=== PATIENT | male | born 1945 | race Caucasian/White ===

== ENCOUNTER 2024-06-07 08:33 | Outpatient (RCR) | payer MEDICARE, BC, SELFPAY ==
--- NOTE | 2024-06-07 09:27 | PT.OPEX ---
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 Mathur Subjective Preferred Name Bill Subjective Patient is a 78 year old male who presents to physical therapy for his pre-op appointment prior to right TKA on 06/13/24. Significant past medical history includes nothing significant. Pain Comments Today: 0/10 on a 0-10 pain scale with 10 = extreme pain At its worst: 7/10 At its best: 0/10 Current Work Status Retired Precautions Weight Bearing Status Full Weight Bearing Therapy Limitations/Systems Review Not Limited Objective Other/Pertinent Objective GAIT/FUNCTIONAL MOBILITY Independent KNEE ROM Left: WNL Right: Extension/Flexion:-5-110 HIP ROM Grossly tested WNL LLE MMT: Hip flexion: R 4+/5 L 4+/5 Hip abduction: R 4+/5 L 4+/5 Hip extension: R 4+/5 L 4+/5 Knee flexion: R 5/5 L 5/5 Knee extension: R 5/5 L 5/5 Reviewed/demonstrated on frequency to perform HEP post operatively including: long sitting quad ankle pumps supine heel slide with strap supine quad sets supine SAQ SLR with quad set seated long arc quad seated knee flexion AAROM supine knee extension stretch on towel roll Extensive discussion and education on what to expect post operatively. Time was spent discussing home modifications, Assistive devices, pain control, fall prevention, hospital stay time line, and assist needed for activities post surgically. Pt questions were answered and demonstrated understanding. Assessment Assessment/Impression Patient is a 78 year old male who presents to physical therapy for his pre-op appointment prior to right TKA on 06/13/24. Patient also has notable objective findings including limited ROM, tenderness to palpation, and decreased strength which are also likely contributing to the problem. Patient is a good candidate for skilled therapy to target deficits described above. Skilled PT intervention is necessary for use of therapeutic exercise manual therapy, neuromuscular re- education, gait training, and therapeutic activity. Functional impairments include difficulty with: standing, walking, exercising, and ADLs. See appropriate sections of PT eval for complete list of goals and POC. D/C plan and criteria is for pt to achieve the goals as listed below or until max rehab potential is met. Pt was agreeable with plan of care and goals established. Primary Functional Limitations standing walking exercising ADLs Plan of Care Rehabilitation Potential Good Physical Therapy Goals Within 10-12 weeks: 1) Pt will improve knee AROM at least 0 to 120 for improved sit to stand transfers 2) Pt will demonstrate negative extensor lag during straight leg raise exercise with ability to complete at least 15 reps with 5 sec hold to improve strength for ambulation 3) Patient will demonstrate/ report ability to walk for 15 minutes w/SPC with pain level <1/10, to allow for community and household ambulation. 4) Pt will be indep with HEP for group home management of pain/symptoms 5) Patient will ascend/descend at least 10 steps using single rail and reciprocal pattern to improve ease of mobility at home/community 7) Patient will demonstrate/ report ability to walk for 15 minutes w/o AD with pain level <1/10, to allow for community and household ambulation. Coordination/Communication With Referral Source Treatment Plan/Direct Interventions Gait Training,Manual Therapy, Neuromuscular Re-ed, Therapeutic Activities, Therapeutic Exercises Patient Will Be Discharged From Therapy Independently Progressing Evaluation Billing Untimed Code Treatment Minutes 30 Complexity Low Certification Information Provider Signature Required Yes Provider Signature Shows Agreement With POC & Medical Necessity Physician NPI Number Write NPI# Here Physician Comment/Change : Physician Signature & Date Requested Please Sign/Date Here
== END 2024-08-14 09:41 | disposition home or self-care (01) ==
PROVIDERS: PCP Internal Medicine; Visit Provider Orthopaedic Surgery
DX: M17.11 Unilateral primary osteoarthritis, right knee (principal); Z96.651 Presence of right artificial knee joint; Z51.89 Encounter for other specified aftercare
CPT/HCPCS: 97161

== ENCOUNTER 2024-06-13 06:19 | Day surgery (SDC) | payer MEDICARE, BC, SELFPAY ==
[2024-06-13] VITALS (20 sets, daily range): BP systolic 104–150; BP diastolic 64–87; PULSE 51–69; RESP 12–20; TEMP 35.8–36.7; O2SAT 94–99; BMI 31.3
--- OUTSIDE RECORDS SUMMARY | 2024-06-13 06:22 | XMS_ITS | Clinical Summary ---
Author Organization [facility] Address [address] [place] [address] Care Team Providers Care Registered Nurse Ambulatory Name Role Phone Ana Humphreys P.A.-C. Primary Care Pro vider Source Comments Patient records contain information from all sites at [facility]. For routine questions regarding patient records, call [phone] during business hours, M-F 8:00 AM - 5:00 PM Central Time. Record requests for emergency care only can be directed to [phone] at any time.[facility] Allergies Active Allergy Reactions Criticality Noted Date Comments Lomefloxacin Photosensitivity 12/16/2006 Sulfamethoxazole-Trimethoprim Rash 2013 Sun burn Medications * This document contains information received from the source organization and may not represent a complete record from that organization. rosuvastatin (Crestor) 10 mg tablet Take 1 tablet (10 mg total) by mouth daily. 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 PSA (Prostate-Specific Antigen) Screen 05/30/2024 8:30 AM CFD ENGINEER Office Visit Department of Community Internal Medicine in [address] [phone] Ana Humphreys MPAS, P.A.-C. Preanesthetic Medical Exam (Primary Dx) 05/16/2024 9:30 AM CFD ENGINEER Comprehensive Visit Department of Urology in [place], [place] [address] [place] [address] Dennise Perez, BALJINDER, C.N.P. Elevated Prostate-Specific Antigen (Primary Dx); Cancer Prostate Family History 05/09/2024 3:24 PM CFD ENGINEER - 05/09/2024 11:59 PM CFD ENGINEER Hospital Encounter Department of Laboratory Medicine in [address] [phone] Ana Humphreys MPAS, P.A.-C. Elevated Prostate-Specific Antigen Discharge Disposition: Home or Self Care 05/09/2024 3:24 PM CFD ENGINEER - 05/09/2024 11:59 PM CFD ENGINEER Hospital Encounter Department of Laboratory Medicine in [address] [phone] Ana Humphreys MPAS, P.A.-C. Elevated Prostate-Specific Antigen Discharge Disposition: Home or Self Care 05/05/2024 10:30 AM CFD ENGINEER Procedure visit Department of Family Medicine, [facility], in [address] [phone] Ana Humphreys MPAS, P.A.-C. Marisela Wagner L.P.N. Cerumen Impacted Bilateral (Primary Dx) 05/05/2024 9:47 AM CFD ENGINEER - 05/05/2024 11:59 PM CFD ENGINEER Hospital Encounter Department of Laboratory Medicine in [address] [phone] Ana Humphreys MPAS, P.A.-C. Screening Examination Prostate Cancer Discharge Disposition: Home or Self Care 05/05/2024 Orders Only Department of Community Internal Medicine in [address] [phone] Ana Humphreys MPAS, P.A.-C. Elevated Prostate-Specific Antigen (Primary Dx) 05/05/2024 Clinical Communication Department of Community Internal Medicine in [address] [phone] Ana Humphreys MPAS, P.A.-C. 03/23/2024 11:24 AM CFD ENGINEER - 03/23/2024 11:59 PM CFD ENGINEER Hospital Encounter Department of Laboratory Medicine in [address] [phone] Ana Humphreys MPAS, P.A.-C. Hyperlipidemia; General Medical Examination Adult; Screening Examination Prostate Cancer Discharge Disposition: Home or Self Care 03/23/2024 11:20 AM CFD ENGINEER Office Visit Department of Community Internal Medicine in [address] [phone] Ana Humphreys MPAS, P.A.-C. Hyperlipidemia (Primary Dx); Screening Examination Prostate Cancer; General Medical Examination Adult 03/23/2024 10:30 AM CFD ENGINEER Office Visit Department of Family Medicine, [facility], in [address] [phone] Ana Humphreys MPAS, P.A.-C. Reanna Mireles RDarryl. Annual Medicare Examination Return (Primary Dx) 03/23/2024 Orders Only Department of Community Internal Medicine in [place], [place] [address] [place] [address] Ana Humphreys MPAS, P.A.-C. Hyperlipidemia (Primary Dx); General Medical Examination Adult 03/22/2024 9:30 AM CFD ENGINEER - 03/22/2024 11:59 PM CFD ENGINEER Hospital Encounter Department of Laboratory Medicine in [place], [place] [address] [place] [address] Ana Humphreys MPAS, P.A.-CTangela General Medical Examination Adult; Screening Test Laboratory; Screening Examination Prostate Cancer Discharge Disposition: Home or Self Care from Last 3 Months Immunizations Immunization Administration Dates Next Due Influenza TIV (IM) 02/19/2024, 8,05/07/2017,2008 Influenza high dose QV(65 ye ars or older) (PF) 01/10/2023,01/21/2021,01/01/2020 Influenza, Quadrivalent, Adj uvanted, Preservative Free 01/17/2022 Influenza, Seasonal, Injectable 03/02/20 14,03/24/2012,03/05/2010,2007,02/23/2007,03/23/2006,05/01/2004,1 Influenza, Unspecified 02/15/2008,2006,03/23/2006,2004,02/15/2003 Pneumococcal, Unspecified 03/19/2023(Deferred: P atient decision) RSV: respiratory syncytial v irus (AREXVY) recombinant vaccine 02/26/2023 RZV (SHINGRIX) 03/19/2023(Deferred: Patient dec ision) Tdap 03/08/2018 influenza trivalent high dos e (HD)(PF) 01/27/2019 influenza trivalent vaccine (6 months and older)(PF) 03/22/2015,01/16/2013,02/11/2011,1999 influenza vaccine quad (FLUZONE/FLUARIX) (6 months and older)(PF) 03/10/2014 Family History Medical History Relation Name Comments Heart valve disorder Daughter Jayda prolaps e Diabetes Father Negro Baxter Prostate cancer Father Negro Baxter Prostate cancer Maternal Grandfather Heart beats irregular Maternal Grandmother Mayra Pacemaker catheter, device Maternal Grandmother Mayra Colon polyps Mother Cindy Baxter Ovarian cancer Mother Cindy Baxter Stroke Paternal Grandfather Eleno Baxter No Known Problems Son Dm Relation Name Status Comments Daughter Jayda Alive Father Negro Baxter Maternal Grandfather Alive Maternal Grandmother Mayra Mother Cindy Baxter Paternal Grandfather Eleno Baxter Son Dm Alive Social History Tobacco Use Types Packs/Day Years Used Date Smoking Tobacco: Former Cigarettes Q uit: 04/19/1994 Pipe Passive Smoke Exposure: Past Smokeless Tobacco: Never Tobacco Cessation:Counseling Given: Not Answered Comments:Smoked a pipe for 20 years. Alcohol Use Standard Drinks/Week Comments Yes 1 (1 standard drink = 0.6 oz pure alcohol) 1-2 drink per month - socially with dinner [facility] WAFUities Answer Date Recorded In the past 12 months has [employer], gas, oil, or water shopatplaces threatened to shut off services in your home? No 03/20/2024 Social Connection and Isolat ion Panel [NHANES] Answer Date Recorded In a typical week, how many times do you talk on the phone with family, friends, or neighbors? Twice a week 12/18/2020 How often do you get togethe r with friends or relatives? Three times a week 12/18/2020 How often do you attend chur or faith services? More than 4 times per year 12/18/2020 Do you belong to any clubs o r organizations such as scientologist groups, unions, fraternal or athletic groups, or school groups? Yes 12/18/2020 How often do you attend meet ings of the clubs or organizations you belong to? More than 4 times per year 12/18/2020 Are you , , di vorced, , never , or living with a partner? 12/18/2020 AUDIT-C Answer Date Recorded Q1: How often do you have a drink containing alc ohol? 2-4 times a month 12/18/2020 Q2: How many drinks containi ng alcohol do you have on a typical day when you are drinking? 1 or 2 12/18/2020 Q3: How often do you have si x or more drinks on one occasion? Never 12/18/2020 Overall Financial Resource Strain (CARDIA) Answe r Date Recorded How hard is it for you to pa y for the very basics like food, housing, medical care, and heating? Not hard at all 03/16/2023 PHQ-2 Answer Date Recorded PHQ-2 Score 0 05/30/2024 [facility] - Occupational Stress Questionnaire Answer Date Recorded Do you feel stress - tense, restless, nervous, or anxious, or unable to sleep at night because your mind is troubled all the time - these days? Not at all 12/18/2020 Exercise Vital Sign Answer Date Recorde d On average, how many days pe r week do you engage in moderate to strenuous exercise (like a brisk walk)? 5 days 03/20/2024 On average, how many minutes do you engage in exercise at this level? 90 min 03/20/2024 Hunger Vital Sign Answer Date Recorded Within the past 12 months, y ou worried that your food would run out before you got the money to buy more. Never true 03/20/20 24 Within the past 12 months, t he food you bought just didn't last and you didn't have money to get more. Never true 03/20/2024 PRAPARE - Transportation Answer Date Re corded In the past 12 months, has l ack of transportation kept you from medical appointments or from getting medications? No 05/2023 In the past 12 months, has l ack of transportation kept you from meetings, work, or from getting things needed for daily living? No 03/20/2024 Nutrition Answer Date Recorded On average, how many serving s of fruits and vegetables do you eat per day (serving size is equal to 1 cup or approximately the size of a tennis ball)? 0-2 03/20/2024 Dental Answer Date Recorded Dental: Regular Dentist Yes 04/23/19 Employment Answer Date Recorded Employment status Retired 03/20/2024 Housing Stability Answer Date Recorded What is your living situation today? I have a [facility] place to live 03/20/2024 Education Answer Date Recorded What is the highest level of school you have completed or the highest degree you have received? Doctorate 12/18/2020 Sex and Gender Information Value Date Recorded Sex Assigned at Male 12/18/2020 10:35 AM CDT Legal Sex Male 6:01 PM CFD ENGINEER Gender Identity Male 12/18/2020 10:35 AM CDT Sexual Orientation Straight 12/18/2020 10 :35 AM CDT Last Filed Vital Signs Vital Sign Reading Time Taken Comments Blood Pressure 139/78 05/30/2024 8:24 AM CFD ENGINEER Pulse 63 05/30/2024 8:24 AM CFD ENGINEER Temperature 35.3 C (95.5 F) 05/30/2024 8:24 AM CFD ENGINEER Respiratory Rate 20 05/30/2024 8:24 AM CFD ENGINEER Oxygen Saturation 98% 05/30/2024 8:24 AM CFD ENGINEER Inhaled Oxygen Concentration - - Weight 102 kg (224 lb 8.6 oz) 05/30/2024 8:24 AM CFD ENGINEER Height 180.5 cm (5' 11.06) 05/30/2024 8:24 AM C Body Mass Index 31.26 05/30/2024 8:24 AM CFD ENGINEER Plan of Treatment Upcoming Encounters Date Type Department Care Team (Late st Contact Info) Description 07/13/2024 8:00 AM CDT Appointment Department of Laboratory Medicine in [place], [place] [address] [phone] Dennise Perez APRN, C.N.P. [address] [phone] 07/17/2024 1:30 PM CDT Office Visit Department of Urology in [address] [phone] Dennise Perez APRN, C.N.P. [address] [phone] Health Maintenance Due Date Last Done Comments Pneumococcal vaccine (50+ years) (1 of 1 - PCV) 1996 Zoster Vaccines (1 of 2) 1996 Fall Risk Screen (Annual) 04/19/2024 COVID-19 Vaccine (8 - 2024-25 season) 2024 02/19/2024, 01/10/2023, 01/17/2022, Additional history exists Visit: Medicare Annual Wellness 03/24/2025 03/23/2024 Visit: Annual, age 65+ (or Medicare and <65) 05/30/2025 05/30/2024, 03/23/2024, 03/19/2023 DTaP,Tdap,and Td Vaccines (2 - Td or Tdap) 03/08/2028 03/08/2018 Hepatitis C Screening Completed 10/04/2020 Colonoscopy Discontinued 10/21/2020 Colonoscopy Discontinued 10/21/2020 Colorectal Cancer Screening Discontinued Colorectal Cancer Surveillance Discontinued Abdominal Aortic Aneurysm (AAA) Screen Discontinued 10/31/2020 RSV vaccine - (32-36 weeks) or 60+ years Completed 02/26/2023 Influenza Vaccine Completed 02/19/2024, , 01/17/2022, Additional history exists Depression Screening (Annual PHQ-2) Completed 05/30/2024, 05/30/[address] Colonography Discontinued Cologuard Discontinued FIT Discontinued IPV Vaccines Aged Out No longer eligi ble based on patient's age to complete this topic Procedures Procedure Name Priority Date/Time Associated Diagnosis Comments PROSTATE-SPECIFIC AG (PSA) DIAGNOSTIC, S Routine 05/09/2024 3:32 PM CFD ENGINEER Elevated Prostate-Specific Antigen URINALYSIS WITH MICROSCOPIC Routine 05/09/2024 3:31 PM CFD ENGINEER Elevated Prostate-Specific Antigen [place] RMVL IMPACT CERUMEN IRRIG UNILAT Routine 05/05/2024 10:30 AM CFD ENGINEER Cerumen Impacted Bilateral PROSTATE-SPECIFIC AG (PSA) SCRN, S Routine 05/05/2024 9:56 AM CFD ENGINEER Screening Examination Prostate Cancer PROSTATE-SPECIFIC AG (PSA) SCRN, S Routine 03/23/2024 11:37 AM CFD ENGINEER Screening Examination Prostate Cancer BASIC METABOLIC PANEL, S/P Routine 03/23/2024 11:37 AM CFD ENGINEER General Medical Examination Adult LIPID PANEL, S Routine 03/23/2024 11:37 AM CFD ENGINEER Hyperlipidemia PROSTATE-SPECIFIC AG (PSA) SCRN, S Routine 03/22/2024 9:41 AM CFD ENGINEER General Medical Examination Adult Screening Test Laboratory Screening Examination Prostate Cancer US AORTA RAD - Routine (most inpatients and all outpatients) 10/31/2020 2:51 PM CDT Screening Abdominal Aortic Aneurysm HCV AB SCRN W/REFLEX TO HCV PCR, S Routine 10/04/2020 8:58 AM CDT Screening Test Laboratory from Last 3 Months or Most Recently Relevant to Health Maintenance Results * (ABNORMAL) PSA (Prostate-Specific Antigen), Diagnostic (05/09/2024 3:32 PM CFD ENGINEER) Prostate-Specific Ag 7.8(H) <=6.5 ng/mL 05/09/2024 6:03 PM CFD ENGINEER OWAT Comment: ----ADDITIONAL INFORMATION---- The testing method is an electrochemiluminescence assay manufactured by [employer] and performed on the Modular or Nash system. Values obtained with different assay methods or kits may be different and cannot be used interchangeably. Test results cannot be interpreted as absolute evidence for the presence or absence of malignant disease. Blood (Blood, Venous) 05/09/2024 3:32 PM CFD ENGINEER 05/09/2024 5:39 PM CFD ENGINEER us Ana HINES, P.A.-C. LAB BLOOD ADD-ON Final Result [facility] [address] [place] [address], [place] OWAT [facility] [place] [address] [place] [address] * (ABNORMAL) Urinalysis, with Microscopic: Urine, Midstream (05/09/2024 3:31 PM CFD ENGINEER) Source Urine, Urine, Midstream 05/09/2024 3:37 PM CFD ENGINEER FB60 Clarity Clear Clear 05/09/2024 3:39 PM CFD ENGINEER FB60 Color Yellow 05/09/2024 3:39 PM CFD ENGINEER FB60 Comment: ----REFERENCE VALUE---- Colorless Yellow Laurie Blood Trace(A) Negative 05/09/2024 3:39 PM CFD ENGINEER FB60 Nitrite Negative Negative 05/09/2024 3:39 PM CFD ENGINEER FB60 Leukocyte Esterase Trace(A) Negative 05/09/2024 3:39 PM CFD ENGINEER FB60 Protein Negative mg/dL 05/09/2024 3:39 PM CFD ENGINEER FB60 Comment: ----REFERENCE VALUE---- Negative Trace Glucose Negative Negative mg/dL 05/09/2024 3:39 PM CFD ENGINEER FB60 Ketones, QI(U) Negative Negative mg/dL 05/09/2024 3:39 PM CFD ENGINEER FB60 Bilirubin Negative Negative 05/09/2024 3:39 PM CFD ENGINEER FB60 pH 6.0 5.0 - 8.0 05/09/2024 3:39 PM CFD ENGINEER FB60 Specific [place] 1.015 1.001 - 1.035 05/09/2024 3:39 PM CFD ENGINEER FB60 Urobilinogen 0.2 0.2 - 1.0 mg/dL 05/09/2024 3:39 PM CFD ENGINEER FB60 White Blood Cells None Seen /hpf 05/09/2024 3:44 PM CFD ENGINEER FB60 Comment: ----REFERENCE VALUE---- Males: 0-3 Females: 0-10 Unknown: 0-10 Red Blood Cells None Seen 0 - 2 /hpf 3:44 PM CFD ENGINEER FB60 Urine (Urine, Midstream) 05/09/2024 3:31 PM CFD ENGINEER 05/09/2024 3:36 PM CFD ENGINEER us Ana HINES, P.A.-C. LAB URINE ORDERAB LES Final Result [facility] [address] [place] [address], [place] FB60 [facility] [place] [address] [place] [address] * [place] RMVL IMPACT CERUMEN IRRIG UNILAT (05/05/2024 10:30 AM CFD ENGINEER) Narrative MMODAL - 05/05/2024 10:30 AM CFD ENGINEER Marisela Wagner L.P.N. 05/05/2024 10:40 AM FAM Ear wax removal procedure Performed by: Marisela Wagner L.P.N. Authorized by: Ana Humphreys MPAS, P.A.-CTangela PROCEDURE DETAILS Location: left ear and right ear Procedure type: irrigation Scope used: otoscope CONSENT Consent obtained: verbal PRE-PROCEDURE DETAILS Indication: cerumen impaction Pre-procedure medications: normal saline SEDATION / ANESTHESIA Anesthesia method: none POST-PROCEDURE DETAILS Inspection: complete impaction removal Hearing quality: improved Complications: no immediate complications us Ana HINES, P.A.-C. PROCEDURE/MINOR S URGICAL ORDERABLES Final Result Performing Organization Address [facility] de Phone Number MMODAL NA * (ABNORMAL) PSA (Prostate-Specific Antigen) Screen (05/05/2024 9:56 AM CFD ENGINEER) Only the most recent of3 resultswithin the time period is included. Prostate-Specific Ag 8.2(H) <=6.5 ng/mL 05/05/2024 1:24 PM CFD ENGINEER OWAT Comment: ----ADDITIONAL INFORMATION---- The testing method is an electrochemiluminescence assay manufactured by [employer] and performed on the Modular or Nash system. Values obtained with different assay methods or kits may be different and cannot be used interchangeably. Test results cannot be interpreted as absolute evidence for the presence or absence of malignant disease. Blood (Blood, Venous) 05/05/2024 9:56 AM CFD ENGINEER 05/05/2024 12:50 PM CFD ENGINEER us Ana HINES, P.A.-C. LAB BLOOD ADD-ON Final Result Performing Organization Address City/[facility] Co de Phone Number [facility] [address] [place] [address], [place] [facility] [place] [address] [place] [address] * Lipid Panel (03/23/2024 11:37 AM CFD ENGINEER) Triglycerides 78 mg/dL 03/23/2024 1:33 PM CFD ENGINEER OWAT Comment: ----REFERENCE VALUE---- Normal: <150 mg/dL Borderline High: 150-199 mg/dL High: 200-499 mg/dL Very High: > or =500 mg/dL Cholesterol, Total 124 mg/dL 2023 1:33 PM CFD ENGINEER OWAT Comment: ----REFERENCE VALUE---- Desirable: < 200 mg/dL Borderline High: 200 - 239 mg/dL High: > or = 240 mg/dL Cholesterol, LDL, Calculated 48 mg/dL 03/23/2024 1:33 PM CFD ENGINEER OWAT Comment: ----REFERENCE VALUE---- Desirable: <100 mg/dL Above Desirable: 100-129 mg/dL Borderline High: 130-159 mg/dL High: 160-189 mg/dL Very High: >=190 mg/dL ----ADDITIONAL INFORMATION---- LDL cholesterol calculated using the Love/NIH equation. Cholesterol, HDL 61 >=40 mg/dL 03/23/20 1:33 PM CFD ENGINEER OWAT Cholesterol, Non-HDL, Calculated 63 mg/dL 03/23/2024 1:33 PM CFD ENGINEER OWAT Comment: ----REFERENCE VALUE---- Desirable: <130 mg/dL Above Desirable: 130-159 mg/dL Borderline High: 160-189 mg/dL High: 190-219 mg/dL Very High: > or =220 mg/dL Fasting (8 HR or more) No 03/23/2024 11:37 AM CFD ENGINEER OWAT Blood (Blood, Venous) 03/23/2024 11:37 AM CFD ENGINEER 03/23/2024 12:47 PM CFD ENGINEER us Ana Humphreys MPAS, P.A.-C. LAB BLOOD ADD-ON Final Result [facility] [address] [place] [address], [facility] OWAT [facility] [place] [address] [place] [address] * Basic Metabolic Panel (03/23/2024 11:37 AM CFD ENGINEER) Potassium, P 4.9 3.6 - 5.2 mmol/L 03/23/2024 1:33 PM CFD ENGINEER OWAT Sodium, P 138 135 - 145 mmol/L 03/23/2024 1:33 PM CFD ENGINEER OWAT Chloride, P 103 98 - 107 mmol/L 03/23/2024 1:33 PM CFD ENGINEER OWAT Bicarbonate, P 25 22 - 29 mmol/L 03/23/2024 1:33 PM CFD ENGINEER OWAT Anion Gap, P 10 7 - 15 03/23/2024 1:33 PM CFD ENGINEER OWAT BUN (Blood Urea Nitrogen), P 23 8 - 24 mg/dL 03/23/2024 1:33 PM CFD ENGINEER OWAT Creatinine 1.00 0.74 - 1.35 mg/dL 03/23/2024 1:33 PM CFD ENGINEER OWAT Estimated GFR (eGFR) 78 >=60 mL/min/BSA 03/23/2024 1:33 PM CFD ENGINEER OWAT Comment: Estimated GFR calculated using the 2020 CKD_EPI creatinine equation. Calcium, Total, P 9.3 8.8 - 10.2 mg/dL 03/23/2024 1:33 PM CFD ENGINEER OWAT Glucose, P 89 70 - 140 mg/dL 03/23/2024 1:33 PM CFD ENGINEER OWAT Blood (Blood, Venous) 03/23/2024 11:37 AM CFD ENGINEER 03/23/2024 12:47 PM CFD ENGINEER us Ana HINES, P.A.-C. LAB BLOOD ADD-ON Final Result [facility] [address] [place] [address], [place] [facility] [place] [address] [place] [address] * US Aorta (10/31/2020 2:51 PM CDT) Anatomical Region Laterality Modality Abdomen, Pelvis, Ultrasound RST LOS, Ultrasound ARZ LOS, Ultrasound FLA LOS N/A Ultrasound 10/31/2020 3:22 PM CDT Impressions 10/31/2020 3:23 PM CDT No abdominal aortic aneurysm. Narrative 10/31/2020 3:23 PM CDT EXAM: US AORTA Exam performed with color and spectral Doppler analysis. COMPARISON: None. FINDINGS: Proximal abdominal aorta measures 1.9 x 2.2 cm. The mid abdominal aorta measures 1.7 x 1.5 cm. The distal abdominal aorta measures 1.3 x 1.6 cm. Normal caliber bilateral common iliac arteries. Aorta: AP - 1.7 cm Aorta: Trans - 1.6 cm Right ABIDA: AP - 1.0 cm Right ABIDA Trans - 1.1 cm Left ABIDA: AP - 1.1 cm Left ABIDA Trans - 1.0 cm Procedure Note Mindy David M.D. - 10/31/2020 EXAM: US AORTA Exam performed with color and spectral Doppler analysis. COMPARISON: None. FINDINGS: Proximal abdominal aorta measures 1.9 x 2.2 cm. The midabdominal aorta measures 1.7 x 1.5 cm. The distal abdominal aorta measures 1.3 x 1.6cm. Normal caliber bilateral common iliac arteries. Aorta: AP - 1.7 cm Aorta: Trans - 1.6 cm Right ABIDA: AP - 1.0 cm Right ABIDA Trans - 1.1 cm Left ABIDA: AP - 1.1 cm Left ABIDA Trans - 1.0 cm IMPRESSION: No abdominal aortic aneurysm. us Thien Murphy M.D. IMG US PROCEDURES Final Result * HCV Ab Scrn w/Reflex to HCV PCR, Serum (10/04/2020 8:58 AM CDT) HCV Ab Screen, S Negative Negative 10/05/2020 9:53 AM CDT [facility] Comment:[id number] rat io is <1.00. Blood (Blood, Venous) 10/04/2020 8:58 AM CDT 10/05/2020 8:01 AM CDT us Thien Murphy M.D. LAB MICROBIOLOGY - BLOOD ORDER FANY Final Result [facility] [address] [address] [facility] Dept. of Laboratory Medicine and Pathology [address] [address] from Last 3 Months or Most Recently Relevant to Health Maintenance Insurance [id number] [facility] [place] [phone] MEDICARE [facility] Care Teams Registered Nurse Ambulatory Relationship Specialty Start Date End Date Ana Humphreys MPAS, P.A.-C. [address] [place] [address] [place] [id number] PCP - General Internal Medicine 04/14/22
--- OUTSIDE RECORDS SUMMARY | 2024-06-13 06:22 | XMS_ITS | Encounter Summary ---
Author Organization [facility] Address [address] [place] [address] Care Team Providers Care Farm Hand Name Role Phone Ana Humphreys P.ATangela-CTangela Primary Care Pro vider Encounter Details Date Type Department Care Team (Latest Contact Info) Description 05/05/2024 9:47 AM WHITE KID BUFFER - 05/05/2024 11:59 PM [facility] Encounter Department of Laboratory Medicine in [place], [place] [address] [place] [address] Ana Humphreys MPAS PTangelaA.-CTangela [address] [place] [phone] Screening Examination Prostate Cancer Discharge Disposition: Home or Self Care Social History Tobacco Use Types Packs/Day Years Used Date Smoking Tobacco: Former Cigarettes Q uit: 04/19/1994 Pipe Passive Smoke Exposure: Past Smokeless Tobacco: Never Comments:Smoked a pipe for 2 0 years. Alcohol Use Standard Drinks/Week Comments Yes 1 (1 standard drink = 0.6 oz pure alcohol) 1-2 drink per month - socially with dinner [facility] Utilities Answer Date Recorded In the past 12 months has [employer], gas, oil, or water [employer] threatened to shut off services in your [...] 12/18/2020 How often do you attend chur ch or anabaptist services? More than 4 times per year 12/18/2020 Do you belong to any clubs o r organizations such as buddhist groups, unions, fraternal or athletic groups, or [...] PHQ-2 Answer Date Recorded PHQ-2 Score 0 03/20/2024 [facility] - Occupational Stress Questionnaire Answer Date Recorded [...] your living situation today? I have a [facility] place to live 03/20/2024 Education Answer Date Recorded What is the highest level of school you have completed or the highest degree you have received? Doctorate 12/18/2020 Sex and Gender Information Value Date Recorded Sex Assigned at Male 12/18/2020 10:35 AM CDT Legal Sex Male 6:01 PM WHITE KID BUFFER Gender Identity Male 12/18/2020 10:35 AM CDT Sexual Orientation Straight 12/18/2020 10 :35 AM CDT documented as of this encounter Medications at Time of Discharge rosuvastatin (Crestor) 10 mg tablet Take 1 tablet (10 mg total) by mouth daily. 90 tablet 3 01/13/2024 documented as of this encounter Plan of Treatment Upcoming Encounters Date Type Department Care Team (Late st Contact Info) Description 07/13/2024 8:00 AM CDT Appointment Department of Laboratory Medicine in [place], [place] [address] [place] [phone] Dennise Perez APRN, C.N.P. [address] [place] [phone] 07/17/2024 1:30 PM CDT Office Visit Department of Urology in [place] [address] [place] [phone] Dennise Perez APRN, C.NTangelaP. [address] [place] [phone] documented as of this encounter Procedures Procedure Name Priority Date/Time Associated Diagnosis Comments PROSTATE-SPECIFIC AG (PSA) SCRN, S Routine 05/05/2024 9:56 AM WHITE KID BUFFER Screening Examination Prostate Cancer documented in this encounter Results * (ABNORMAL) PSA (Prostate-Specific Antigen) Screen (05/05/2024 9:56 AM WHITE KID BUFFER) Prostate-Specific Ag 8.2(H) <=6.5 ng/mL 05/05/2024 1:24 PM WHITE KID BUFFER OWAT Comment: ----ADDITIONAL INFORMATION---- The testing method is an electrochemiluminescence assay manufactured by [employer] and performed on the Modular or Nash system. Values obtained with different assay methods or kits may be different and cannot be used interchangeably. Test results cannot be interpreted as absolute evidence for the presence or absence of malignant disease. Blood (Blood, Venous) 05/05/2024 9:56 AM WHITE KID BUFFER 05/05/2024 12:50 PM WHITE KID BUFFER us Ana HINES, P.A.-C. LAB BLOOD ADD-ON Final Result [facility] [address] [place] [address], [facility] OWAT [facility] in [place] [address] [place] [address] documented in this encounter Visit Diagnoses Diagnosis Screening Examination Prostate Cancer documented in this encounter Care Teams Farm Hand Relationship Specialty Start Date End Date Ana Humphreys MPAS, P.A.-C. [address] [place] [address] [place] IBRAHIM [phone] PCP - General Internal Medicine 04/14/22 documented as of this encounter
--- OUTSIDE RECORDS SUMMARY | 2024-06-13 06:22 | XMS_ITS | Clinical Summary ---
Author Organization [facility] Address [address] [place] [address] Care Team Providers Care Fire Safety Director Name Role Phone Thien Murphy MD Primary Care Provider [phone] Allergies Active Allergy Reactions Criticality Noted Date Comments Sulfamethoxazole-Trimethoprim Rash 2013 Sun burn Lomefloxacin Photosensitivity 12/16/2006 Medications tadalafiL (CIALIS;ADCIRCA) 20 mg tabletIndication s:Erectile dysfunction of organic origin Take 1 tablet by mouth once daily if needed for Erectile Dysfunction. Take 30 minutes before sexual activity. 10 tablet 11 0 Active rosuvastatin (Crestor) 10 mg tablet Take 10 mg by mouth once daily. 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 Overview (10/29/2020): Check with PCP in 5 years to see if a repeat colonoscopy is needed Abdominal pain, epigastric Cholecystitis Personal history of colonic polyps Immunizations Name Administration Dates Next Due COVID-19 vaccine (Tidalwave Trader 30mcg/0.3mL) P FDYLAN 07/13/2020,06/22/2020 Influenza, IIV3 (Age >=3 years) 05/07/2017,01/31 Influenza, IIV4 03/23/2015,03/10/2014 Influenza, Inactivated IIV3 (Age 65+ Years) Preserv Free 01/31/2018 Td (Age >=7 Years) 02/13/2000 Tdap 03/08/2018 Family History Medical History Relation Name Comments Cancer-prostate Father Diabetes Father Heart Disease Maternal Aunt Heart Disease Maternal Grandmother Cancer Mother ovarian Diabetes Paternal Grandfather Stroke Paternal Grandfather Relation Name Status Comments Father Maternal Aunt Maternal Grandmother Mother Paternal Grandfather Social History Tobacco Use Types Packs/Day Years Used Date Smoking Tobacco: Former Pipe Smokeless Tobacco: Never Tobacco Cessation:Counseling Given: Yes Alcohol Use Standard Drinks/Week Comments Yes 0 (1 standard drink = 0.6 oz pur e alcohol) occasional PHQ-2 Answer Date Recorded PHQ-2 Score 0 06/18/2018 Social Connections Answer Date Recorded Frequency of Communication with Friends and Fami ly Not on file 04/19/2021 Financial Resource Strain Answer Date R ecorded Difficulty of Paying Living Expenses Not on file 04/19/2021 Difficulty of Paying Living Expenses Not on file 04/19/2021 Sex and Gender Information Value Date Recorded Sex Assigned at Not on file Legal Sex Male 5:23 AM 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 Gender Identity Not on file Sexual Orientation Not on file 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 Not on file Not on file Obstetrics History Last Filed Vital Signs Vital Sign Reading Time Taken Comments Blood Pressure 123/66 10/21/2020 3:15 PM CDT Pulse 59 10/21/2020 3:15 PM CDT Temperature 36.6 C (97.8 F) 10/21/2020 1:31 PM CDT Respiratory Rate 14 10/21/2020 3:15 PM CDT Oxygen Saturation 96% 10/21/2020 3:15 PM CDT Inhaled Oxygen Concentration - - Weight 97.2 kg (214 lb 4.6 oz) 10/21/2020 1:31 P M CDT Height 181.6 cm (5' 11.5) 10/21/2020 1:31 PM CD T Body Mass Index 29.47 10/21/2020 1:31 PM CDT Plan of Treatment Health Maintenance Due Date Last Done Comments Pneumococcal series for age 50+ (1 of 1 - PCV) 1996 Zoster (shingles) series for age 50+ (1 of 2) 1996 Medicare Wellness for age 65+ 09/28/2011 Depression screening for age 12+ 03/08/2019 03/08/2018, 03/02/2018, 02/02/2018, Additional history exists BMI (ht and wt on same day) for age 18+ 11/19/2020 11/20/2019, 03/08/2018, 02/28/2018, Additional history exists RSV vaccine for adults or (1 - 1-dose 75+ series) 2021 COVID-19 vaccine series (3 - 2023- season) 2023 07/13/2020, 06/22/2020 Influenza for age 65+ 12/19/2023 01/31/2018 , 05/07/2017, 03/23/2015, Additional history exists Tetanus booster 03/08/2028 03/08/2018, 02/13/2000 Tdap Completed 03/08/2018 Hepatitis C screening for ag e 18-79 Completed 11/20/2019 Procedures Procedure Name Priority Date/Time Associated Diagnosis Comments ANTI HCV Routine 11/20/2019 10:52 AM CDT Erectile dysfunction of organic origin from Last 3 Months or Most Recently Relevant to Health Maintenance Results * ANTI HCV (11/20/2019 10:52 AM CDT) HEPATITIS C ANTIBODY Non-React bridgette Non-React bridgette 11/20/2019 5:13 PM CDT [facility] Comment:Antibodies to HCV no t detected; does not exclude the possibility of exposure to HCV. Blood BLOOD SPECIMEN / Unknown Venipuncture / Unknown 11/20/2019 10:52 AM CDT 11/20/2019 10:52 AM CDT us Manpreet Nagel MD SEND OUTS Final Result [facility] [address] [place] [address], [place] from Last 3 Months or Most Recently Relevant to Health Maintenance Insurance [facility] [place] ONLY MEDICARE PART B HB ONLY Advance Directives * Full Code (Latest Code Status on File) Date Activated Date Inactivated Comments 10/21/2020 1:21 PM 10/21/2020 5:49 PM Question Answer Comments Code Status Discussion: Per Existing Order * Full Code Date Activated Date Inactivated Comments 03/15/2018 8:54 AM 03/15/2018 6:55 PM Question Answer Comments Code Status Discussion: Not Discussed Care Teams Fire Safety Director Relationship Specialty Start Date End Date Thien Murphy MD PCP - General Internal Medicine 10/16/20
--- OUTSIDE RECORDS SUMMARY | 2024-06-13 06:22 | XMS_ITS | Encounter Summary ---
Author Organization [facility] Address [address] [place] [address] Care Team Providers Care Cloth Bale Header Name Role Phone Ana Humphreys P.ATangela-CTangela Primary Care Pro vider Encounter Details Date Type Department Care Team (Latest Contact Info) Description 05/09/2024 3:24 PM JANITOR AND CLEANER - 05/09/2024 11:59 PM [facility] Encounter Department of Laboratory Medicine in [place], [place] [address] [place] [address] Ana Humphreys MPAS PTangelaA.-CTangela [address] [place] [phone] Elevated Prostate-Specific Antigen Discharge Disposition: Home or Self Care Social History Tobacco Use Types Packs/Day Years Used Date Smoking Tobacco: Former Cigarettes Q uit: 04/19/1994 Pipe Passive Smoke Exposure: Past Smokeless Tobacco: Never Comments:Smoked a pipe for 2 0 years. Alcohol Use Standard Drinks/Week Comments Yes 1 (1 standard drink = 0.6 oz pure alcohol) 1-2 drink per month - socially with dinner [facility] Utilities Answer Date Recorded In the past 12 months has [employer], gas, oil, or water [employer] threatened to shut off services in your [...] often do you attend chur ch or nondenominational services? More than 4 times per year 12/18/2020 Do you belong to any clubs o r organizations such as adventist groups, unions, fraternal or athletic groups, or [...] Answer Date Recorded PHQ-2 Score 0 03/20/2024 [facility] of Occupat ional Health - Occupational Stress [...] your living situation today? I have a [facility] place to live 03/20/2024 Education Answer Date Recorded What is the highest level of school you have completed or the highest degree you have received? Doctorate 12/18/2020 Sex and Gender Information Value Date Recorded Sex Assigned at Male 12/18/2020 10:35 AM CDT Legal Sex Male 6:01 PM JANITOR AND CLEANER Gender Identity Male 12/18/2020 10:35 AM CDT [...] CDT Appointment Department of Laboratory Medicine in [place], [place] [address], [place] [phone] Dennise Perez APRN, C.N.P. [address], [place] [phone] 07/17/2024 1:30 PM CDT Office Visit Department of Urology in [place] [address] [place] [phone] Dennise Perez APRN CTangelaNTangelaP. [address] [place] [phone] documented as of this encounter Procedures Procedure Name Priority Date/Time Associated Diagnosis Comments PROSTATE-SPECIFIC AG (PSA) DIAGNOSTIC, S Routine 05/09/2024 3:32 PM JANITOR AND CLEANER Elevated Prostate-Specific Antigen documented in this encounter Results * (ABNORMAL) PSA (Prostate-Specific Antigen), Diagnostic (05/09/2024 3:32 PM JANITOR AND CLEANER) Prostate-Specific Ag 7.8(H) <=6.5 ng/mL 05/09/2024 6:03 PM JANITOR AND CLEANER OW Comment: ----ADDITIONAL INFORMATION---- The testing method is an electrochemiluminescence assay manufactured by [employer] and performed on the Modular or Nash system. Values obtained with different assay methods or kits may be different and cannot be used interchangeably. Test results cannot be interpreted as absolute evidence for the presence or absence of malignant disease. Blood (Blood, Venous) 05/09/2024 3:32 PM JANITOR AND CLEANER 05/09/2024 5:39 PM JANITOR AND CLEANER us Ana HINES, P.A.-C. LAB BLOOD ADD-ON Final Result [facility] [address] [place] [address], [facility] [place] [address] [place] [address] documented in this encounter Visit Diagnoses Diagnosis Elevated Prostate-Specific Antigen documented in this encounter Care Teams Cloth Bale Header Relationship Specialty Start Date End Date Ana Humphreys MPAS, P.A.-C. [address] [facility] ISHA IBRAHIM [phone] PCP - General Internal Medicine 04/14/22 documented as of this encounter
--- OUTSIDE RECORDS SUMMARY | 2024-06-13 06:22 | XMS_ITS | Encounter Summary ---
Author Organization [facility] Address [address] [place] [address] Care Team Providers Care Mop Handle Assembler Name Role Phone Ana Humphreys P.A.-C. Primary Care Pro vider Reason for Referral * Outpatient (Routine) - Authorized Specialty Diagnoses / Procedures Referred By Meenakshi verdin Referred To Contact Urology Dennise Perez APRN, C.N.P. [address] [place] [address] Phone: tel: fax: [facility] Referral ID Status Reason Start Date Expiration Date V isits Requested Visits Authorized [id number] Authorized 05/16/2024 11/15/2025 1 1 LABOR SUPERVISOR Reason for Visit * Reason Comments Elevated PSA * Outpatient (Routine) - Closed Specialty Diagnoses / Procedures Referred By Meenakshi verdin Referred To Contact Urology Diagnoses Elevated Prostate-Specific Antigen Ana Humphreys MPAS, P.A.-C. [address] [place] [phone] Phone: tel: fax: [facility] Region Referral ID Status Reason Start Date Expiration Date Visits Re quested Visits Authorized [id number] Closed 05/05/2024 11/04/2025 1 1 Encounter Details Date Type Department Care Team (Latest Contact Info) Description 05/16/2024 9:30 AM MILL LABOR SUPERVISOR Comprehensive Visit Department of Urology in [place], [place] [address] [place] [address] Dennise Perez APRN, C.N.P. [address] [place] [address] Elevated Prostate-Specific Antigen (Primary Dx); Cancer Prostate Family History Social History Tobacco Use Types Packs/Day Years Used Date Smoking Tobacco: Former Cigarettes Q uit: 04/19/1994 Pipe Passive Smoke Exposure: Past Smokeless Tobacco: Never Comments:Smoked a pipe for 2 0 years. Alcohol Use Standard Drinks/Week Comments Yes 1 (1 standard drink = 0.6 oz pure alcohol) 1-2 drink per month - socially with dinner [facility] Utilities Answer Date Recorded In the past 12 months has [employer], [employer], oil, or water [employer] threatened to shut off services in your [...] often do you attend chur ch or zoroastrianism services? More than 4 times per year 12/18/2020 Do you belong to any clubs o r organizations such as presybeterian groups, unions, fraternal or athletic groups, or [...] Answer Date Recorded PHQ-2 Score 0 03/20/2024 [facility] - [facility]ational Stress Questionnaire Answer Date [...] living situation today? I have a [facility] place to live 03/20/2024 Education Answer Date Recorded What is the highest level of school you have completed or the highest degree you have received? Doctorate 12/18/2020 Sex and Gender Information Value Date Recorded Sex Assigned at Male 12/18/2020 10:35 AM CDT Legal Sex Male 6:01 PM MILL LABOR SUPERVISOR Gender Identity Male 12/18/2020 10:35 AM CDT Sexual Orientation Straight 12/18/2020 10 :35 AM CDT documented as of this encounter Consult Notes * Dennise Perez APRN, C.N.P. - 05/16/2024 9:30 AM CST SUBJECTIVE REQUESTING PROVIDER Ana Humphreys MPAS, P.A.-C. REASON FOR CONSULT Elevated PSA HISTORY OF PRESENT ILLNESS Bill is a pleasant 78-year-old male here today for consultation for elevated PSA level. He states that as a child he had some urinary tract infections. He mild hypospadias and was uncircumcised. He did see a urologist in his 20s for this as well. He states that currently his stream is quite good, he has not had any changes in urinary symptoms. He does have family history of prostate cancer in his father and maternal grandfather. Please see PSA history below. Lab Results Component Value Date/Time PSA 7.8 (H) 05/09/2024 1532 PSA 8.2 (H) 05/05/2024 0956 PSA 7.0 (H) 03/23/2024 1137 PSA 6.7 (H) 03/22/2024 0941 PSA 6.2 03/19/2023 1438 PSA 2.5 10/04/2020 0858 The following portions of the patient's history were reviewed and updated as appropriate: allergies, current medications, family history, medical history, social history, surgical history, and problem list. REVIEW OF SYSTEMS Gastrointestinal: - Negative for constipation and diarrhea. Genitourinary: - Negative for incontinence, difficulty urinating, pain with urination, blood in urine, urgency andfrequent urination. Medical History[1] Surgical History[2] Family History[3] Allergies[4] Medications Ordered Prior to Encounter[5] Social History[6] OBJECTIVE There were no vitals filed for this visit. PHYSICAL EXAM Vitals and nursing note reviewed. General: Well developed, well nourished, well groomed male in no acute distress. Neurological: Alert, cooperative, oriented x3. Appropriate mood and affect. Abdomen: Soft, non-tender, non-distended : Skin color and turgor appropriate for region. No ulcers, erythema, rashes, or pigmented lesionsnoted. PROSTATE: Perianal area intact without lesions or visible hemorrhoids. No fissures or fistulas. Good sphincter tone, no masses. Prostate is symmetrical, smooth, firm, mildly enlarged, non-tender and without nodules. Seminal vesicles are non-palpable. Approximate size is 30-35 grams. ASSESSMENT / PLAN 1. Elevated Prostate-Specific Antigen (Primary) 2. Cancer Prostate Family History We had an in-depth discussion about his PSA levels and causes of elevated PSA. We discussed that PSA is elevated for typically 3 reasons: Prostate cancer, prostatitis, or Benign Prostatic Hypertrophy. Because his prostate exam is normal and does not show any masses, we will recheck PSA total and free approximately in 2 months and follow-up at that time. If his PSA continues to climb or if his PSAratio is quite low we would discuss going forward with prostate MRI or prostate biopsy at that time. Of note, he will be having knee replacement surgery on June 13 at [facility]. - Urology - Oncology - prostate consult (clinic) - PSA (Prostate-Specific Antigen), Total and Free; Future Signed by: Dennise Perez APRN, C.N.P. 05/16/2024 6:27 PM MILL LABOR SUPERVISOR [1] Past Medical History: Diagnosis Date Cholecystitis 09/29/2020 Hyperlipidemia 09/2020 Polyp Colon 10/21/2020 [2] Past Surgical History: Procedure Laterality Date GALLBLADDER SURGERY 03/11/2018 OTHER SURGICAL HISTORY 1989???s Meniscus TONSILLECTOMY age 5 VASECTOMY 30's [3] Family History Problem Relation Name Age of Onset Ovarian cancer Mother Cindy Sahil Colon polyps Mother Cindy Sahil Prostate cancer Father Negro Baxter Diabetes Father Negro Baxter Heart beats irregular Maternal Grandmother Mayra Pacemaker catheter, device Maternal Grandmother Mayra Stroke Paternal Grandfather Eleno Baxter Heart valve disorder Daughter Jayda prolapse No Known Problems Son Dm Prostate cancer Maternal Grandfather [4] Allergies Allergen Reactions Lomefloxacin Photosensitivity Sulfamethoxazole-Trimethoprim Rash Sun burn [5] Current Outpatient Medications on File Prior to Visit Medication Sig Dispense Refill rosuvastatin (Crestor) 10 mg tablet Take 1 tablet (10 mg total) by mouth daily. 90 tablet 3 No current facility-administered medications on file prior to visit. [6] Social History Tobacco Use Smoking status: Former Current packs/day: 0.00 Types: Pipe, Cigarettes Quit date: 04/19/1994 Years since quittin.0 Passive exposure: Past Smokeless tobacco: Never Tobacco comments: Smoked a pipe for 20 years. Vaping Use Vaping status: never used Substance Use Topics Alcohol use: Yes Alcohol/week: 1.0 standard drink of alcohol Types: 1 Cans of beer per week Comment: 1-2 drink per month - socially with dinner Drug use: Never LABOR SUPERVISOR documented in this encounter Plan of Treatment Upcoming Encounters Date Type Department Care Team (Late st Contact Info) Description 07/13/2024 8:00 AM CDT Appointment Department of Laboratory Medicine in [place], [place] [address] [phone] Dennise Perez APRN, C.N.P. [address] [phone] 07/17/2024 1:30 PM CDT Office Visit Department of Urology in [address] [phone] Dennise Perez APRN, C.N.P. [address] [phone] Scheduled Orders Name Type Priority Associated Diagnoses Orde r Schedule PSA (Prostate-Specific Antigen), Total and Free Lab Routine Elevated Prostate-Specific Antigen Cancer Prostate Family History Expected: 07/10/2024, Expires: 05/16/2025 Scheduled Referrals Name Type Priority Associated Diagnoses Orde r Schedule Urology office visit (clinic) Outpatient Referral Routine Expected: 07/17/2024, Expires: 08/14/2025 documented as of this encounter Visit Diagnoses Diagnosis Elevated Prostate-Specific Antigen- Primary Cancer Prostate Family History documented in this encounter Care Teams Mop Handle Assembler Relationship Specialty Start Date End Date Ana Humphreys MPAS, P.A.-C. [address] [place] [phone] PCP - General Internal Medicine 04/14/22 documented as of this encounter
--- OUTSIDE RECORDS SUMMARY | 2024-06-13 06:22 | XMS_ITS | Encounter Summary ---
Author Organization [facility] Address [address] [place] [address] Care Team Providers Care Machine Featheredger And Reducer Name Role Phone Ana Humphreys, P.A.-C. Primary Care Pro vider Reason for Visit * Reason Comments Pre-op Exam Right TKA 06/13/24 [facility] Mathur in [facility], . * Appointment Request (Routine) - Closed Specialty Diagnoses / Procedures Referred By Meenakshi t Referred To Contact Community Internal Medicine Referral ID Status Reason Start Date Expiration Date Visits Re quested Visits Authorized [id number] Closed 05/02/2024 05/02/2025 1 1 Encounter Details Date Type Department Care Team (Latest Contact Info) Description 05/30/2024 8:30 AM PROGRAM STRATEGIST Office Visit Department of Community Internal Medicine in [place], [place] [address] [place] [phone] Ana Humphreys MPAS, P.A.-C. [address] [place] [phone] Preanesthetic Medical Exam (Primary Dx) Social History Tobacco Use Types Packs/Day Years Used Date Smoking Tobacco: Former Cigarettes Q uit: 04/19/1994 Pipe Passive Smoke Exposure: Past Smokeless Tobacco: Never Comments:Smoked a pipe for 2 0 years. Alcohol Use Standard Drinks/Week Comments Yes 1 (1 standard drink = 0.6 oz pure alcohol) 1-2 drink per month - socially with dinner [facility] Utilities Answer Date Recorded In the past 12 months has e electric, gas, oil, or water company threatened to shut off services in your [...] often do you attend chur ch or alevism services? More than 4 times per year 12/18/2020 Do you belong to any clubs o r organizations such as pentecostal groups, unions, fraternal or athletic groups, or [...] Answer Date Recorded PHQ-2 Score 0 05/30/2024 [facility] [place] of Occupat ional Health - Occupational Stress [...] your living situation today? I have a [facility] place to live 03/20/2024 Education Answer Date Recorded What is the highest level of school you have completed or the highest degree you have received? Doctorate 12/18/2020 Sex and Gender Information Value Date Recorded Sex Assigned at Male 12/18/2020 10:35 AM CDT Legal Sex Male 6:01 PM PROGRAM STRATEGIST Gender Identity Male 12/18/2020 10:35 AM CDT Sexual Orientation Straight 12/18/2020 10 :35 AM CDT documented as of this encounter Last Filed Vital Signs Vital Sign Reading Time Taken Comments Blood Pressure 139/78 05/30/2024 8:24 AM PROGRAM STRATEGIST Pulse 63 05/30/2024 8:24 AM PROGRAM STRATEGIST Temperature 35.3 C (95.5 F) 05/30/2024 8:24 AM PROGRAM STRATEGIST Respiratory Rate 20 05/30/2024 8:24 AM PROGRAM STRATEGIST Oxygen Saturation 98% 05/30/2024 8:24 AM PROGRAM STRATEGIST Inhaled Oxygen Concentration - - Weight 102 kg (224 lb 8.6 oz) 05/30/2024 8:24 AM PROGRAM STRATEGIST Height 180.5 cm (5' 11.06) 05/30/2024 8:[address] Body Mass Index 31.26 05/30/2024 8:24 AM PROGRAM STRATEGIST documented in this encounter Patient Instructions * Patient Instructions* Ana Humphreys MPAS, P.A.-C. - 05/30/2024 8:30 AM PROGRAM STRATEGIST No aspirin/NSAID products 7 days prior to procedure RAM STRATEGIST documented in this encounter H&P Notes * Ana Humphreys MPAS, P.A.-C. - 05/30/2024 8:30 AM CST PREANESTHETIC MEDICAL EVALUATION Procedure: Right Total Knee Arthroplasty Date of Surgery: 06/13/2024 Requesting Provider: Dr. Mathur. [facility] SUBJECTIVE HISTORY OF PRESENT ILLNESS Mike Baxter is a 78 y.o. male seen in consultation for a preanesthetic medical evaluation.He has a PMHx of hyperlipidemia managed on rosuvastatin. He occasionally takes NSAIDs for joint pain. Patient currently denies Shortness of breath, Wheezing or coughing, Difficulty breathing when lyingflat, Waking up at night feeling short of breath, Edema - abdominal bloating, Edema - lower extremities, and Fatigue/Altered activity tolerance. He denies chest pain. Procedure cardiac risk: Intermediate Risk (cardiac risk <5%): CEA, head/neck surgery, intraabdominal or intrathoracic surgery, orthopedic surgery, prostate surgery Functional status: Functional Class II: Able to perform 5-7 METS (walk > 4 blocks or climb over 2 flights without cardiac or pulmonary Sx) RCRI estimated risk of michelle-operative cardiac , non-fatal RI, or non-fatal cardiac arrest: None RCRI risk: 0 Predictors (0.4% risk of major cardiac event) His alcohol intake is 1- 2 drinks per month. He is a former smoker, quit in . PREOPERATIVE CONSIDERATIONS None. No history of chronic kidney disease, liver disease, obstructive sleep apnea, venous thromboembolism, atrial fibrillation, aortic stenosis, seizure history. PAST MEDICAL HISTORY Medical History[1] PAST SURGICAL HISTORY Surgical History[2] OBJECTIVE PHYSICAL EXAM Vitals: BP 139/78 (BP Location: Left arm, Patient Position: Sitting, Cuff Size: Large) Pulse 63 Temp (!) 35.3 ??C (Temporal) Resp 20 Ht 180.5 cm Wt 102 kg SpO2 98% BMI 31.26 kg/m?? Constitutional General: He is not in acute distress. Appearance: Normal appearance. HENT Head: Normocephalic and atraumatic. Right Ear: There is impacted cerumen. Left Ear: Tympanic membrane normal. Mouth/Throat: Mouth: Mucous membranes are moist. Pharynx: Oropharynx is clear. No oropharyngeal exudate or posterior oropharyngeal erythema. Eyes Extraocular Movements: Extraocular movements intact. Conjunctiva/sclera: Conjunctivae normal. Pupils: Pupils are equal, round, and reactive to light. Neck Vascular: No carotid bruit. Cardiovascular Rate and Rhythm: Normal rate and regular rhythm. Heart sounds: Normal heart sounds. No murmur heard. No gallop. Pulmonary Effort: Pulmonary effort is normal. No respiratory distress. Breath sounds: Normal breath sounds. No wheezing, rhonchi or rales. Abdominal General: Bowel sounds are normal. There is no distension. Palpations: Abdomen is soft. Tenderness: There is no abdominal tenderness. There is no guarding or rebound. Musculoskeletal Cervical back: Neck supple. Right lower leg: No edema. Left lower leg: No edema. Lymphadenopathy Cervical: No cervical adenopathy. Skin General: Skin is warm and dry. Neurological Mental Status: He is alert and oriented to person, place, and time. Mental status is at baseline. Motor: No weakness. Deep Tendon Reflexes: Reflexes normal. Psychiatric Mood and Affect: Mood normal. Behavior: Behavior normal. Thought Content: Thought content normal. LABORATORY STUDIES/EKG/Radiology: Lab Results Component Value Date WBC 5.0 01/31/2018 HGB 14.5 01/31/2018 HCT 43.7 01/31/2018 MCV 94 01/31/2018 PLT 211 01/31/2018 Lab Results Component Value Date NA 138 03/23/2024 Lab Results Component Value Date KPLASMA 4.9 03/23/2024 Lab Results Component Value Date CREATININE 1.00 03/23/2024 Lab Results Component Value Date GLUCOSE 89 03/23/2024 ASSESSMENT / PLAN ASSESSMENT / PLAN #1 Preanesthetic Medical Exam Mike Baxter is considered a low risk patient undergoing a moderate risk procedure. His physical activity is currently above 4 mets and he currently declines any issues. He was instructed to hold aspirin/NSAID products for 7 days prior to his procedure. No medical contraindication to anticipated surgery. DONNY Boles PTangelaA.PhoenixC. [1] Past Medical History: Diagnosis Date Cholecystitis 09/29/2020 Hyperlipidemia 09/2020 Polyp Colon 10/21/2020 [2] Past Surgical History: Procedure Laterality Date GALLBLADDER SURGERY 03/11/2018 OTHER SURGICAL HISTORY 1989???s Meniscus TONSILLECTOMY age 5 VASECTOMY 31's RAM STRATEGIST documented in this encounter Plan of Treatment Upcoming Encounters Date Type Department Care Team (Late st Contact Info) Description 07/13/2024 8:00 AM CDT Appointment Department of Laboratory Medicine in [place], [place] [address] [phone] Dennise Perez APRN, C.N.P. [address] [phone] 07/17/2024 1:30 PM CDT Office Visit Department of Urology in [place], [place] [address] [place] [phone] Dennise Perez APRN, C.N.P. [address] [phone] documented as of this encounter Visit Diagnoses Diagnosis Preanesthetic Medical Exam- Primary documented in this encounter Care Teams Machine Featheredger And Reducer Relationship Specialty Start Date End Date Ana Humphreys MPAS, P.A.-C. [address] [place] [phone] PCP - General Internal Medicine 04/14/22 documented as of this encounter
--- OUTSIDE RECORDS SUMMARY | 2024-06-13 06:22 | XMS_ITS | Encounter Summary ---
Author Organization [facility] Address [address] [place] [address] Care Team Providers Care Surface Grinding Machine Hand Name Role Phone Ana Humphreys P.A.-CTangela Primary Care Pro vider Reason for Referral * Outpatient (Routine) - Authorized Specialty Diagnoses / Procedures Referred By Meenakshi verdin Referred To Contact Diagnoses Cerumen Impacted Bilateral Procedures FAM Ear wax removal procedure Ana Humphreys MPAS, P.A.-CTangela [address] [place] [address] Phone: tel: fax: [facility] Referral ID Status Reason Start Date Expiration Date V isits Requested Visits Authorized [id number] Authorized 05/05/2024 05/05/2025 1 1 GER FRONT Encounter Details Date Type Department Care Team (Late st Contact Info) Description 05/05/2024 Clinical Communication Department of Community Internal Medicine in [place], [place] [address] [place] [address] Ana Humphreys MPAS, P.ATangela-CTangela [address] [place] [phone] Social History Tobacco Use Types Packs/Day Years Used Date Smoking Tobacco: Former Cigarettes Q uit: 04/19/1994 Pipe Passive Smoke Exposure: Past Smokeless Tobacco: Never Comments:Smoked a pipe for 2 0 years. Alcohol Use Standard Drinks/Week Comments Yes 1 (1 standard drink = 0.6 oz pure alcohol) 1-2 drink per month - socially with dinner [facility] Utilities Answer Date Recorded In the past [...] often do you attend chur ch or uatsdin services? More than 4 times per year [...] Answer Date Recorded PHQ-2 Score 0 03/20/2024 [facility] [place] of Occupat ional Health - Occupational Stress [...] your living situation today? I have a [facility] place to live 03/20/2024 Education Answer Date Recorded What is the highest level of school you have completed or the highest degree you have received? Doctorate 12/18/2020 Sex and Gender Information Value Date Recorded Sex Assigned at Male 12/18/2020 10:35 AM CDT Legal Sex Male 6:01 PM MANAGER FRONT Gender Identity Male 12/18/2020 10:35 AM CDT Sexual Orientation Straight 12/18/2020 10 :35 AM CDT documented as of this encounter Plan of Treatment Upcoming Encounters Date Type Department Care Team (Late st Contact Info) Description 07/13/2024 8:00 AM CDT Appointment Department of Laboratory Medicine in [place], [place] [address], [place] [phone] Dennise Perez APRN, C.N.P. [address] [facility] [place] [phone] 07/17/2024 1:30 PM CDT Office Visit Department of Urology in [place], [place] [address] [place] [phone] Dennise Perez APRN, C.N.P. [address] [place] [phone] documented as of this encounter Results * AR RMVL IMPACT CERUMEN IRRIG UNILAT (05/05/2024 10:30 AM MANAGER FRONT) Narrative MMODAL - 05/05/2024 10:30 AM MANAGER FRONT Marisela Wagner L.P.N. 05/05/2024 10:40 AM FAM Ear wax removal procedure Performed by: Mariseal Wagner L.PKalpesh Authorized by: Ana Humphreys MPAS, P.A.-CTangela PROCEDURE DETAILS Location: left ear and right ear Procedure type: irrigation Scope used: otoscope CONSENT Consent obtained: verbal PRE-PROCEDURE DETAILS Indication: cerumen impaction Pre-procedure medications: normal saline SEDATION / ANESTHESIA Anesthesia method: none POST-PROCEDURE DETAILS Inspection: complete impaction removal Hearing quality: improved Complications: no immediate complications Ana HINES P.A.-CTangela PROCEDURE/MINOR S URGICAL ORDERABLES Final Result Performing Organization Address City/State/[facility] [[email or web address]] Co de Phone Number MMODAL NA documented in this encounter Visit Diagnoses Diagnosis Cerumen Impacted Bilateral- Primary Cerumen Impacted Bilateral- Primary documented in this encounter Care Teams Surface Grinding Machine Hand Relationship Specialty Start Date End Date Ana Humphreys MPAS, P.A.-C. [address] [facility] [place] [phone] PCP - General Internal Medicine 04/14/22 documented as of this encounter
--- OUTSIDE RECORDS SUMMARY | 2024-06-13 06:22 | XMS_ITS | Encounter Summary ---
Author Organization [facility] Address [address] [place] [address] Care Team Providers Care Precision Dyer Name Role Phone Ana Humphreys P.ATangela-CTangela Primary Care Pro vider Encounter Details Date Type Department Care Team (Latest Contact Info) Description 05/09/2024 3:24 PM ELECTRONICS MANUFACTURER - 05/09/2024 11:59 PM [facility] Hospital Encounter Department of Laboratory Medicine in [place], [place] [address] [place] [address] Ana Humphreys MPAS PTangelaA.-CTangela [address] [place] [phone] Elevated Prostate-Specific Antigen Discharge Disposition: Home [...] drink per month - socially with dinner [facility] Utilities Answer Date Recorded In the past 12 months has [employer], gas, oil, or water [employer] threatened to shut off services in your [...] often do you attend chur ch or denominational services? More than 4 times per year 12/18/2020 Do you belong to any clubs o r organizations such as mandaeism groups, unions, fraternal or athletic groups, or [...] Answer Date Recorded PHQ-2 Score 0 03/20/2024 [facility] of Occupat ional Health - [...] your living situation today? I have a [facility] place to live 03/20/2024 Education Answer Date Recorded What is the highest level of school you have completed or the highest degree you have received? Doctorate 12/18/2020 Sex and Gender Information Value Date Recorded Sex Assigned at Male 12/18/2020 10:35 AM CDT Legal Sex Male 6:01 PM ELECTRONICS MANUFACTURER Gender Identity Male 12/18/2020 10:35 AM CDT [...] CDT Appointment Department of Laboratory Medicine in [place], [place] [address], [place] [phone] Dennise Perez APRN, C.N.P. [address] [phone] 07/17/2024 1:30 PM CDT Office Visit Department of Urology in [place] [address] [place] [phone] Dennise Perez APRN, C.N.P. [address] [phone] documented as of this encounter Procedures Procedure Name Priority Date/Time Associated Diagnosis Comments URINALYSIS WITH MICROSCOPIC Routine 05/09/2024 3:31 PM ELECTRONICS MANUFACTURER Elevated Prostate-Specific Antigen documented in this encounter Results * (ABNORMAL) Urinalysis, with Microscopic: Urine, Midstream (05/09/2024 3:31 PM ELECTRONICS MANUFACTURER) Source Urine, Urine, Midstream 05/09/2024 3:37 PM ELECTRONICS MANUFACTURER FB60 Clarity Clear Clear 05/09/2024 3:39 PM ELECTRONICS MANUFACTURER FB60 Color Yellow 05/09/2024 3:39 PM ELECTRONICS MANUFACTURER FB60 Comment: ----REFERENCE VALUE---- Colorless Yellow Laurie Blood Trace(A) Negative 05/09/2024 3:39 PM ELECTRONICS MANUFACTURER FB60 Nitrite Negative Negative 05/09/2024 3:39 PM ELECTRONICS MANUFACTURER FB60 Leukocyte Esterase Trace(A) Negative 05/09/2024 3:39 PM ELECTRONICS MANUFACTURER FB60 Protein Negative mg/dL 05/09/2024 3:39 PM ELECTRONICS MANUFACTURER FB60 Comment: ----REFERENCE VALUE---- Negative Trace Glucose Negative Negative mg/dL 05/09/2024 3:39 PM ELECTRONICS MANUFACTURER FB60 Ketones, QI(U) Negative Negative mg/dL 05/09/2024 3:39 PM ELECTRONICS MANUFACTURER FB60 Bilirubin Negative Negative 05/09/2024 3:39 PM ELECTRONICS MANUFACTURER FB60 pH 6.0 5.0 - 8.0 05/09/2024 3:39 PM ELECTRONICS MANUFACTURER FB60 Specific [place] 1.015 1.001 - 1.035 05/09/2024 3:39 PM ELECTRONICS MANUFACTURER FB60 Urobilinogen 0.2 0.2 - 1.0 mg/dL 05/09/2024 3:39 PM ELECTRONICS MANUFACTURER FB60 White Blood Cells None Seen /hpf 05/09/2024 3:44 PM ELECTRONICS MANUFACTURER FB60 Comment: ----REFERENCE VALUE---- Males: 0-3 Females: 0-10 Unknown: 0-10 Red Blood Cells None Seen 0 - 2 /hpf 01/21/202 5 3:44 PM ELECTRONICS MANUFACTURER FB60 Urine (Urine, Midstream) 05/09/2024 3:31 PM ELECTRONICS MANUFACTURER 05/09/2024 3:36 PM ELECTRONICS MANUFACTURER us Ana HINES P.A.-C. LAB URINE ORDERAB LES Final Result - [facility] [address] [place] [address], [facility] FB60 [facility] in [place] [address] [place] [address] documented in this encounter Visit Diagnoses Diagnosis Elevated Prostate-Specific Antigen documented in this encounter Care Teams Precision Dyer Relationship Specialty Start Date End Date Ana Humphreys MPAS, PTangelaA.[place]. [address] [place] [phone] PCP - General Internal Medicine 04/14/22 documented as of this encounter
--- OUTSIDE RECORDS SUMMARY | 2024-06-13 06:22 | XMS_ITS | Encounter Summary ---
Author Organization [facility] Address [address] [place] [address] Care Team Providers Care Tipple Mechanic Name Role Phone Ana Humphreys P.A.-CTangela Primary Care Pro vider Encounter Details Date Type Department Care Team (Late st Contact Info) Description 06/08/2024 Results Follow-Up Department of Community Internal Medicine in [place], [place] [address] [place] [phone] Ana Humphreys MPAS, P.A.-CTangela [address] [place] [phone] PSA (Prostate-Specific Antigen) Screen Social History Tobacco Use Types Packs/Day Years Used Date Smoking Tobacco: Former Cigarettes Q uit: 04/19/1994 Pipe Passive Smoke Exposure: Past Smokeless Tobacco: Never Comments:Smoked a pipe for 2 0 years. Alcohol Use Standard Drinks/Week Comments Yes 1 (1 standard drink = 0.6 oz pure alcohol) 1-2 drink per month - socially with dinner [facility] Utilities Answer Date Recorded In the past 12 months has [employer], gas, oil, or water company threatened to [...] often do you attend chur ch or jewish services? More than 4 times per year 12/18/2020 Do you belong to any clubs o r organizations such as jew groups, unions, fraternal or athletic groups, or [...] Answer Date Recorded PHQ-2 Score 0 05/30/2024 [facility] of Occupat ional Health - Occupational Stress [...] your living situation today? I have a [employer] [facility] [employer] place to live 03/20/2024 Education Answer Date Recorded What is the highest level of school you have completed or the highest degree you have received? Doctorate 12/18/2020 Sex and Gender Information Value Date Recorded Sex Assigned at Male 12/18/2020 10:35 AM CDT Legal Sex Male 6:01 PM BENEFITS CONSULTANT Gender Identity Male 12/18/2020 10:35 AM CDT Sexual Orientation Straight 12/18/2020 10 :35 AM CDT documented as of this encounter Plan of Treatment Upcoming Encounters Date Type Department Care Team (Late st Contact Info) Description 07/13/2024 8:00 AM CDT Appointment Department of Laboratory Medicine in [place], [place] [address], [place] [phone] Dennise Perez APRN, C.N.P. [address], [place] [address] 07/17/2024 1:30 PM CDT Office Visit Department of Urology in [place], [place] [address] [place] [phone] Dennise Perez APRN, C.N.P. [address], [place] [address] documented as of this encounter Visit Diagnoses Not on filedocumented in this encounter Care Teams Tipple Mechanic Relationship Specialty Start Date End Date Ana Humphreys MPAS, P.A.-C. [address] [facility] [phone] PCP - General Internal Medicine 04/14/22 documented as of this encounter
--- OUTSIDE RECORDS SUMMARY | 2024-06-13 06:22 | XMS_ITS | Encounter Summary ---
Author Organization [facility] Address [address] [place] [address] Care Team Providers Care Unloader Operator Name Role Phone Ana Humphreys P.A.-C. Primary Care Pro vider Reason for Visit * Reason Comments Cerumen Impaction Ear irrigation * Outpatient (Routine) - Closed Specialty Diagnoses / Procedures Referred By Meenakshi t Referred To Contact Ana Humphreys MPAS, P.A.-C. [address] [place] [address] Phone: tel: fax: [facility] Referral ID Status Reason Start Date Expiration Date Visits Re quested Visits Authorized [id number] Closed 03/24/2024 09/23/2025 1 1 Encounter Details Date Type Department Care Team (Latest Contact Info) Description 05/05/2024 10:30 AM AMPOULE WASHING MACHINE OPERATOR Procedure visit Department of Family Medicine, [facility], in [place], [place] [address] [place] [address] Ana Humphreys MPAS, P.A.-C. [address] [place] [address] Marisela Wagner L.P.N. Cerumen Impacted Bilateral (Primary Dx) Social History Tobacco Use Types Packs/Day Years Used Date Smoking Tobacco: Former Cigarettes Q uit: 04/19/1994 Pipe Passive Smoke Exposure: Past Smokeless Tobacco: Never Comments:Smoked a pipe for 2 0 years. Alcohol Use Standard Drinks/Week Comments Yes 1 (1 standard drink = 0.6 oz pure alcohol) 1-2 drink per month - socially with dinner [facility] Utilities Answer Date Recorded In the past [...] often do you attend chur ch or taoist services? More than 4 times per year 12/18/2020 Do you belong to any clubs o r organizations such as sabianism groups, unions, fraternal or athletic groups, or [...] Answer Date Recorded PHQ-2 Score 0 03/20/2024 [facility] [place] of Occupat ional Health - Occupational Stress [...] your living situation today? I have a [facility] place to live 03/20/2024 Education Answer Date Recorded What is the highest level of school you have completed or the highest degree you have received? Doctorate 12/18/2020 Sex and Gender Information Value Date Recorded Sex Assigned at Male 12/18/2020 10:35 AM CDT Legal Sex Male 6:01 PM AMPOULE WASHING MACHINE OPERATOR Gender Identity Male 12/18/2020 10:35 AM CDT Sexual Orientation Straight 12/18/2020 10 :35 AM CDT documented as of this encounter Procedure Notes * Marisela Wagner, L.P.N. - 05/05/2024 10:30 AM CSTAssociated Order(s): FAM Ear wax removal procedure Pre-Procedure Diagnose(s): Cerumen Impacted Bilateral Post-Procedure Diagnose(s): Cerumen Impacted Bilateral FAM Ear wax removal procedure Performed by: Marisela Wagner L.PTangelaNTangela Authorized by: Ana Humphreys MPAS, P.A.-C. PROCEDURE DETAILS Location: left ear and right ear Procedure type: irrigation Scope used: otoscope CONSENT Consent obtained: verbal PRE-PROCEDURE DETAILS Indication: cerumen impaction Pre-procedure medications: normal saline SEDATION / ANESTHESIA Anesthesia method: none POST-PROCEDURE DETAILS Inspection: complete impaction removal Hearing quality: improved Complications: no immediate complications ULE WASHING MACHINE OPERATOR documented in this encounter Plan of Treatment Upcoming Encounters Date Type Department Care Team (Late st Contact Info) Description 07/13/2024 8:00 AM CDT Appointment Department of Laboratory Medicine in [place], [place] [address] [address] Dennise Perez APRN, C.N.P. [address] [address] 07/17/2024 1:30 PM CDT Office Visit Department of Urology in [place] [address] [place] [phone] Dennise Preez APRN, C.N.P. [address] [address] documented as of this encounter Procedures Procedure Name Priority Date/Time Associated Diagnosis Comments AR RMVL IMPACT CERUMEN IRRIG UNILAT Routine 05/05/2024 10:30 AM AMPOULE WASHING MACHINE OPERATOR Cerumen Impacted Bilateral documented in this encounter Results * AR RMVL IMPACT CERUMEN IRRIG UNILAT (05/05/2024 10:30 AM AMPOULE WASHING MACHINE OPERATOR) Narrative [facility] - 05/05/2024 10:30 AM AMPOULE WASHING MACHINE OPERATOR Marisela Wagner L.P.NTangela 05/05/2024 10:40 AM FAM Ear wax removal procedure Performed by: Marisela Wagner L.PTangelaN. Authorized by: Ana Humphreys MPAS PTangelaATangela-CTangela PROCEDURE DETAILS Location: left ear and right ear Procedure type: irrigation Scope used: otoscope CONSENT Consent obtained: verbal PRE-PROCEDURE DETAILS Indication: cerumen impaction Pre-procedure medications: normal saline SEDATION / ANESTHESIA Anesthesia method: none POST-PROCEDURE DETAILS Inspection: complete impaction removal Hearing quality: improved Complications: no immediate complications us Luis BartonAMagdalena PROCEDURE/MINOR S URGICAL ORDERABLES Final Result [facility] NA documented in this encounter Visit Diagnoses Diagnosis Cerumen Impacted Bilateral- Primary documented in this encounter Care Teams Unloader Operator Relationship Specialty Start Date End Date Ana Humphreys MPAS, PTangelaA.-C. [address] [place] [phone] PCP - General Internal Medicine 04/14/22 documented as of this encounter
--- OUTSIDE RECORDS SUMMARY | 2024-06-13 06:22 | XMS_ITS | Encounter Summary ---
Author Organization [facility] Address [address] [place] [address] Care Team Providers Care Home Care Administrator Name Role Phone Ana Humphreys P.A.-Parvzi Primary Care Pro vider Reason for Referral * Outpatient (Routine) - Closed Specialty Diagnoses / Procedures Referred By Meenakshi verdin Referred To Contact Urology Diagnoses Elevated Prostate-Specific Antigen Ana Humphreys MPAS, P.ATangela-CTangela [address] [place] [address] Phone: tel: fax: [facility] Region Referral ID Status Reason Start Date Expiration Date Visits Re quested Visits Authorized [id number] Closed 05/05/2024 11/04/2025 1 1 ER FEEDER Encounter Details Date Type Department Care Team (Late st Contact Info) Description 05/05/2024 Orders Only Department of Community Internal Medicine in [place], [place] [address] [place] [address] Ana Humphreys MPAS, P.A.-Parviz [address] [place] [address] Elevated Prostate-Specific Antigen (Primary Dx) Social History Tobacco Use Types Packs/Day Years Used Date Smoking Tobacco: Former Cigarettes Q uit: 04/19/1994 Pipe Passive Smoke Exposure: Past Smokeless Tobacco: Never Comments:Smoked a pipe for 2 0 years. Alcohol Use Standard Drinks/Week Comments Yes 1 (1 standard drink = 0.6 oz pure alcohol) 1-2 drink per month - socially with dinner [facility] Utilities Answer Date Recorded In the past 12 months has [employer] electric, gas, oil, or water company threatened [...] often do you attend chur ch or mosque services? More than 4 times per year [...] Answer Date Recorded PHQ-2 Score 0 03/20/2024 [facility] [place] of Occupat ional Health - Occupational Stress [...] your living situation today? I have a [facility] place to live 03/20/2024 Education Answer Date Recorded What is the highest level of school you have completed or the highest degree you have received? Doctorate 12/18/2020 Sex and Gender Information Value Date Recorded Sex Assigned at Male 12/18/2020 10:35 AM CDT Legal Sex Male 6:01 PM FILLER FEEDER Gender Identity Male 12/18/2020 10:35 AM CDT Sexual Orientation Straight 12/18/2020 10 :35 AM CDT documented as of this encounter Plan of Treatment Upcoming Encounters Date Type Department Care Team (Late st Contact Info) Description 07/13/2024 8:00 AM CDT Appointment Department of Laboratory Medicine in [place], [place] [address] [place] [address] Dennise Perez APRN, C.N.P. [address] [facility] [place] [phone] 07/17/2024 1:30 PM CDT Office Visit Department of Urology in [place] [address] [place] [phone] Dennise Perez APRN C.N.P. [address] [place] [address] Scheduled Referrals Name Type Priority Associated Diagnoses Orde r Schedule Urology - Oncology - prostate consult (clinic) Outpatient Referral Routine Elevated Prostate-Specific Antigen Expected: 05/05/2024, Expires: 08/03/2025 documented as of this encounter Results * (ABNORMAL) PSA (Prostate-Specific Antigen), Diagnostic (05/09/2024 3:32 PM FILLER FEEDER) Prostate-Specific Ag 7.8(H) <=6.5 ng/mL 05/09/2024 6:03 PM FILLER FEEDER OWAT Comment: ----ADDITIONAL INFORMATION---- The testing method is an electrochemiluminescence assay manufactured by [employer] and performed on the Modular or Nash system. Values obtained with different assay methods or kits may be different and cannot be used interchangeably. Test results cannot be interpreted as absolute evidence for the presence or absence of malignant disease. Blood (Blood, Venous) 05/09/2024 3:32 PM FILLER FEEDER 05/09/2024 5:39 PM FILLER FEEDER us Ana HINES, P.A.-C. LAB BLOOD ADD-ON Final Result [facility] [address] [place] [address], [place] OWAT [facility] in [place] [address] [place] [address] * (ABNORMAL) Urinalysis, with Microscopic: Urine, Midstream (05/09/2024 3:31 PM FILLER FEEDER) Source Urine, Urine, Midstream 05/09/2024 3:37 PM FILLER FEEDER FB60 Clarity Clear Clear 05/09/2024 3:39 PM FILLER FEEDER FB60 Color Yellow 05/09/2024 3:39 PM FILLER FEEDER FB60 Comment: ----REFERENCE VALUE---- Colorless Yellow Laurie Blood Trace(A) Negative 05/09/2024 3:39 PM FILLER FEEDER FB60 Nitrite Negative Negative 05/09/2024 3:39 PM FILLER FEEDER FB60 Leukocyte Esterase Trace(A) Negative 05/09/2024 3:39 PM FILLER FEEDER FB60 Protein Negative mg/dL 05/09/2024 3:39 PM FILLER FEEDER FB60 Comment: ----REFERENCE VALUE---- Negative Trace Glucose Negative Negative mg/dL 05/09/2024 3:39 PM FILLER FEEDER FB60 Ketones, QI(U) Negative Negative mg/dL 05/09/2024 3:39 PM FILLER FEEDER FB60 Bilirubin Negative Negative 05/09/2024 3:39 PM FILLER FEEDER FB60 pH 6.0 5.0 - 8.0 05/09/2024 3:39 PM FILLER FEEDER FB60 Specific Rodney 1.015 1.001 - 1.035 05/09/2024 3:39 PM FILLER FEEDER FB60 Urobilinogen 0.2 0.2 - 1.0 mg/dL 05/09/2024 3:39 PM FILLER FEEDER FB60 White Blood Cells None Seen /hpf 05/09/2024 3:44 PM FILLER FEEDER FB60 Comment: ----REFERENCE VALUE---- Males: 0-3 Females: 0-10 Unknown: 0-10 Red Blood Cells None Seen 0 - 2 /hpf 3:44 PM FILLER FEEDER FB60 Urine (Urine, Midstream) 05/09/2024 3:31 PM FILLER FEEDER 05/09/2024 3:36 PM FILLER FEEDER us Ana HINES, P.A.-C. LAB URINE ORDERAB LES Final Result [facility] [address] [place] [address], [facility] FB60 [facility] in [place] [address] [place] [address] documented in this encounter Visit Diagnoses Diagnosis Elevated Prostate-Specific Antigen- Primary documented in this encounter Care Teams Home Care Administrator Relationship Specialty Start Date End Date Ana Humphreys MPAS, P.A.-C. [address] [place] [address] PCP - General Internal Medicine 04/14/22 documented as of this encounter
[2024-06-13] MEDS: OXYCODONE (CR) 10 MG TAB.ER.12H PO (06:30)
[2024-06-13] MEDS: ACETAMINOPHEN 500 MG TABLET 1000 MG PO (06:30)
[2024-06-13] MEDS: CELECOXIB 200 MG CAPSULE PO (06:30)
[2024-06-13] MEDS: SODIUM CHLORIDE 0.9 % (FLUSH) 10 ML SYRINGE IVF (07:00)
[2024-06-13] MEDS: LACTATED RINGERS 1000 ML 1,000 ML 100 ML IV ×2 (07:00→09:46)
[2024-06-13] MEDS: fentaNYL 100 MCG/2 ML inj IVP (07:08)
[2024-06-13] MEDS: MIDAZOLAM HCL 1 MG/ML inj IVP (07:08)
--- NOTE | 2024-06-13 07:13 | SUR.PREOP ---
TIME?OUT:?0708 PT/RN/MDA?VERIFICATION?OF?SURGICAL?SITE,?PROCEDURE,?AND?CONSENT OBTAINED?PRIOR?TO?INVASIVE?PROCEDURE.
[2024-06-13] MEDS: CEFAZOLIN 2 GM INJ IVP (07:26)
[2024-06-13] MEDS: TRANEXAMIC ACID 100 MG/ML INJ 1000 MG IV (07:30)
--- NOTE | 2024-06-13 07:39 | P.NB_ITS ---
Nerve Block Nerve Block Time Seen by Provider: 07:10 Date Seen: 06/13/24 Type of block requested by surgeon for post-operative analgesia: adductor canal Side: right Time out performed: Yes Verification of patient name: Yes Verification of date of : Yes Site marking: site marked Name of person performing procedure: Luis Continuous monitoring Was continuous monitoring of O2 sat, B/P, fisheries director, recorded every 15 minutes?: Yes Procedure Checklist: sterile prep, needles and gloves Ultrasound guided. Images saved: Yes Medications given in 5ml increments after negative aspiration: Marcaine %: 0.25 mL: 15 Needle gauge: 20 Precedex (mcg): 25 Patient tolerated procedure well: Yes Block Charges Block Charge (with Pro Fee): Femoral Nerve Use of Ultrasound Machine for Block: Yes- US Guidance/pain block
--- NOTE | 2024-06-13 07:39 | P.NB_ITS ---
Nerve Block Nerve Block Time Seen by Provider: 07:10 Date Seen: 06/13/24 Type of block requested by surgeon for post-operative analgesia: geniculars Side: right Time out performed: Yes Verification of patient name: Yes Verification of date of : Yes Site marking: site marked Name of person performing procedure: Luis Continuous monitoring Was continuous monitoring of O2 sat, B/P, patient monitor, recorded every 15 minutes?: Yes Procedure Checklist: sterile prep, needles and gloves Ultrasound guided. Images saved: Yes Medications given in 5ml increments after negative aspiration: Marcaine %: 0.25 mL: 9 Needle gauge: 25 Patient tolerated procedure well: Yes Block Charges Block Charge (with Pro Fee): Genicular Nerve Block
--- NOTE | 2024-06-13 07:40 | W.ANESCHARGE ---
Anesthesia Charges Start Date/Time Anesthesia Start Date: 06/13/24 Anesthesia Start Time: 07:15 Stop Date/Time Anesthesia Stop Date: 06/13/24 Anesthesia Stop Time: 09:22 Summary Extremes of Age - Over 70 or under 1: MDA Coding CPT Codes CPT Codes: ANESTH KNEE ARTHROPLASTY - 27015 ([id number]) P2 - PATIENT W/MILD SYST DISEASE, QK - MARINATOR 2-4 CNCRNT ANES PROC, QX - GUIDE CRUISE SVC W/ MD MED DIRECTION Additional Codes: Summary - Extremes of Age - Over 70 or under 1: MDA ([id number])
--- NOTE | 2024-06-13 08:51 | PM.ORPRC ---
Procedure Note Date of procedure: 06/13/24 Procedure: For PREOPERATIVE DIAGNOSIS: Right knee osteoarthritis POSTOPERATIVE DIAGNOSIS: Right knee osteoarthritis NAME OF OPERATION: Right total knee arthroplasty SURGEON: Nasir Mathur MD BROKERAGE BRANCH MANAGER: DORIS Foster ANESTHESIA: Spinal ESTIMATED BLOOD LOSS: 0 mL COMPLICATIONS: None SPECIMENS: None DRAINS: None PREOPERATIVE ANTIBIOTICS: Ancef 2 grams IMPLANTS: 1. J&J Attune # 7 posterior stabilized femur 2. #6 fixed-bearing tibia 3. # 7 posterior stabilized, 5 mm fixed-bearing polyethylene 4. 41 patella INDICATIONS: The patient is a 78-year-old with a longstanding history of severe, unrelenting right knee pain secondary to end-stage (grade IV) right knee osteoarthritis. Despite appropriate nonoperative management, including activity modification, anti-inflammatories, wuhy-bji-iktqjyd pain medication, bracing, physical therapy, and injections they continue to have pain and disability. Operative intervention was offered. The risks, benefits and expected outcomes were discussed in detail. These included but were not limited to: Infection, bleeding, injury to blood vessel or nerve, venous thromboembolism. All questions were answered to their satisfaction. Use of an assistant attorney general was necessary throughout the case for patient positioning and safety, soft tissue retraction, and closure. PROCEDURE: Spinal anesthesia was administered. The patient was placed supine on the operating table. The assistant attorney general made sure the patient was positioned appropriately. The lower extremity was prepped and draped in the usual sterile fashion. The limb was exsanguinated with the Geo bandage. The pneumatic tourniquet was inflated to 300 mmHg. A standard anterior incision was made with the knee in flexion. Subcutaneous dissection was sharply taken through fascial layer #1. Full-thickness medial and lateral flaps were elevated. The assistant attorney general retracted the soft tissues and protected them throughout the case. A standard subvastus approach was made. The patella was subluxed. The infrapatellar fat pad was preserved. The menisci and cruciate ligaments were sharply d?brided. Marginal osteophytes were d?brided with the rongeur. The drill was used to penetrate the femoral canal. The canal was aspirated and irrigated with pulse lavage. The intramedullary femoral guide was placed for a 5-degree valgus cut, removing 10 mm off the distal femur. The saw was used to make the cut. Whitesides line and the trans epicondylar axis were marked. The femoral sizing guide was pinned onto the distal femur. Three degrees of external rotation nicely parallels the transepicondylar axis. Pins were placed for posterior referencing. The four-in-one cutting guide was pinned onto the distal femur. The anterior, posterior, and chamfer cuts were made. The assistant attorney general protected the collateral ligaments. The box cutting guide was pinned. The box cuts were made. The boxed trial was placed and was an excellent fit. Drill holes for the lugs were made. Attention was then turned to the proximal tibia. The extramedullary tibial guide was placed for a neutral varus/valgus cut with 5 degrees of posterior slope, removing 2 mm based off the medial tibial surface. The assistant attorney general protected the collateral ligaments and the neurovascular bundle. The saw was used to make the cut. Trial components were placed. The knee was nicely balanced in both flexion and extension. The trial components were removed. The tray was placed in appropriate rotation, parallel to our tibial cutting pins. It was pinned by the assistant attorney general and the drill and the punch were used. The tray was removed. The punch was used again. We placed a bone plug in the femoral canal. Attention was then turned to the patella. [place] patellar thickness was 25 mm. The lobster claw resection guide was used with the 9.5 mm ada. The saw was used to make the cut. Drill holes were made by the assistant attorney general. The trial was placed and was an excellent fit. Cancellous surfaces were irrigated with pulse lavage and thoroughly dried by the assistant attorney general. We cemented the tibial component, then the femoral component. We impacted the 5 mm polyethylene onto the tibial tray. The knee was brought into full extension. We then cemented the patellar component. Excessive cement was removed. The cement was allowed to harden. The knee was taken through a range of motion and was found to be nicely balanced in both flexion and extension. The patella tracks centrally. The assistant attorney general did a three minute dilute Betadine solution soak. The assistant attorney general irrigated the wound with 3 liters of normal saline via pulse lavage. The assistant attorney general reapproximated the extensor mechanism with #1 Vicryl in an interrupted fbgdkr-rw-wltyp fashion. The assistant attorney general then ran the extensor mechanism with a #1 PDO Stratafix. The assistant attorney general closed the subcutaneous tissues with a 3-0 Stratafix and the skin with a running 3-0 Stratafix in a subcuticular fashion. Glue was used to seal the skin. The assistant attorney general placed a dry dressing. Sponge and needle counts were correct x2. The patient tolerated the procedure well. There were no apparent complications. They were carefully transferred to the hospital bed and taken to the postanesthesia care unit in satisfactory condition. PLAN: The patient will be mobilized with physical therapy. Aspirin will be used for DVT prophylaxis. They will be discharged to home once medically appropriate.
--- NOTE | 2024-06-13 09:26 | W.ANESCHARGE ---
Anesthesia Charges Start Date/Time Anesthesia Start Date: 06/13/24 Anesthesia Start Time: 07:15 Stop Date/Time Anesthesia Stop Date: 06/13/24 Anesthesia Stop Time: 09:22 Summary Extremes of Age - Over 70 or under 1: CLAIM ADMINISTRATOR Coding CPT Codes CPT Codes: ANESTH KNEE ARTHROPLASTY - 40416 ([id number]) P2 - PATIENT W/MILD SYST DISEASE, QK - TRACK REPAIR LABORER 2-4 CNCRNT ANES PROC, QX - CLAIM ADMINISTRATOR SVC W/ MD MED DIRECTION Additional Codes: Summary - Extremes of Age - Over 70 or under 1: CLAIM ADMINISTRATOR ([id number])
[2024-06-13] MEDS: OXYCODONE 5 MG TABLET PO ×2 (11:29→13:00)
== END 2024-06-13 14:22 | disposition home or self-care (01) ==
LOC: OR 06:20
PROVIDERS: PCP Internal Medicine; Visit Provider Orthopaedic Surgery
PROC: (CPT 27447; principal; 2024-06-13 07:15)
DX: M17.11 Unilateral primary osteoarthritis, right knee (principal); G89.18 Other acute postprocedural pain
CPT/HCPCS: 27447; 01402; 64447; 64454; 73560; 76942; 97110; 97116; 97161; 99100; A9270; C1776; J0665; J0690; J1100; J2250; J2371; J2405; J2704; J3010; J7120